=== PATIENT | female | born 1960 | race Caucasian/White ===

== ENCOUNTER 2018-02-02 12:21 | Outpatient (CLI) ==
[2018-02-02] MEDS ORDERED: POTASSIUM CHLORIDE PREMIX RUN 10 MEQ in PREMIX 100 ML WATER 1 BAG IV STA (16:24)
[2018-02-02] MEDS ORDERED: TYLENOL PO STA (16:25)
[2018-02-02] MEDS ORDERED: LASIX IVP STA (16:27)
[2018-02-02] MEDS ORDERED: BENADRYL 25 MG in SODIUM CHLORIDE 100 ML IV STA (16:28)
[2018-02-03] MEDS: LASIX IVP STA ×2 (00:22→04:01)
[2018-02-03 04:00] VITALS: BP 101/64; TEMP 98
== END 2018-02-03 04:05 | disposition home or self-care (01) ==
LOC: LAB 12:21 → OPMED 12:22
PROVIDERS: ATTEND Internal Medicine Hematology & Oncology
DX: E61.1 Iron deficiency (principal); D64.9 Anemia, unspecified; C34.11 Malignant neoplasm of upper lobe, right bronchus or lung; C79.31 Secondary malignant neoplasm of brain; D72.829 Elevated white blood cell count, unspecified; D70.9 Neutropenia, unspecified; D72.819 Decreased white blood cell count, unspecified; T45.1X5A Adverse effect of antineoplastic and immunosuppressive drugs, initial encounter; I87.1 Compression of vein; M79.7 Fibromyalgia; R41.0 Disorientation, unspecified; F41.9 Anxiety disorder, unspecified; M54.9 Dorsalgia, unspecified; G89.29 Other chronic pain; M19.90 Unspecified osteoarthritis, unspecified site; G47.30 Sleep apnea, unspecified
CPT/HCPCS: 36415; 36430; 85014; 85018; 86850; 86900; 86922